=== PATIENT | male | born 1945 | race Caucasian/White ===

== ENCOUNTER 2019-09-27 10:43 | Inpatient (IN) | payer OTHER ==
[~2019-09-27] VITALS: Ht 160 cm; Wt 66.2 kg
[2019-10-03] MEDS ORDERED: LANTUS SUBCUTANEO (10:17)
[2019-10-03] MEDS ORDERED: GABAPEN PO (10:17)
[2019-10-03] MEDS ORDERED: TOPROL XL50 M1 PO (10:18)
[2019-10-03] MEDS ORDERED: ZESTRIL10 M1 PO (10:18)
[2019-10-03] MEDS ORDERED: SYNTHROID75 MCG PO (10:18)
[2019-10-03] MEDS ORDERED: GLIMEPIRIDE4 M1 PO (10:19)
[2019-10-03] MEDS ORDERED: SIMVAST PO (10:19)
[2019-10-03] MEDS ORDERED: ULTRAM50 MG PO (10:20)
[2019-10-03] MEDS ORDERED: LANOXIN125 MCG PO (10:20)
[2019-10-16] MEDS ORDERED: GABAPENTIN800 M1 PO (08:11)
[2019-10-16] MEDS ORDERED: SIMVASTATIN20 MG PO (08:11)
[2019-10-20] MEDS ORDERED: NEURONTIN300 MG PO (12:35)
[2019-10-20] MEDS ORDERED: PERCOCET 5-3251 EACH PO (12:35)
== END 2019-10-21 12:16 | disposition home or self-care (01) | DRG 331 ==
LOC: SURH 10-13 06:00 → O/R 10-13 06:00 → SURG 10-13 07:15 → SURH 10-13 12:42
PROVIDERS: ADMIT Surgery
PROC: 07TB4ZZ Resection of Mesenteric Lymphatic, Percutaneous Endoscopic Approach (ICD-10-PCS; 2019-10-13)
PROC: 0DTN4ZZ Resection of Sigmoid Colon, Percutaneous Endoscopic Approach (ICD-10-PCS; principal; 2019-10-13 07:15)
PROC: 0DJD8ZZ Inspection of Lower Intestinal Tract, Via Natural or Artificial Opening Endoscopic (ICD-10-PCS; 2019-10-16)
DX: C20 Malignant neoplasm of rectum (principal); K57.30 Diverticulosis of large intestine without perforation or abscess without bleeding; K64.1 Second degree hemorrhoids; Z85.048 Personal history of other malignant neoplasm of rectum, rectosigmoid junction, and anus; I10 Essential (primary) hypertension

== ENCOUNTER 2019-10-11 09:14 | Outpatient (CLI) | payer OTHER ==
[~2019-10-11 09:14] MED LIST: GABAPEN PO; GLIMEPIRIDE4 M1 PO; LANOXIN125 MCG PO; LANTUS SUBCUTANEO; SIMVAST PO; SYNTHROID75 MCG PO; TOPROL XL50 M1 PO; ULTRAM50 MG PO; ZESTRIL10 M1 PO
== END 2019-10-11 11:53 | disposition home or self-care (01) ==
LOC: NUCLEAR 09:14
DX: I10 Essential (primary) hypertension (principal)

== ENCOUNTER 2019-10-23 11:31 | Emergency (ER) | payer OTHER ==
[~2019-10-23] VITALS: Ht 160 cm; Wt 66.2 kg
[~2019-10-23 11:31] MED LIST changes: +GABAPENTIN800 M1 PO; +NEURONTIN300 MG PO; +PERCOCET 5-3251 EACH PO; +SIMVASTATIN20 MG PO
[2019-10-23] MEDS ORDERED: HYDRALAZINE HCL50 MG (11:50)
[2019-10-23] MEDS ORDERED: AZOR 5-20 MG T1 EACH (11:51)
== END 2019-10-23 18:15 | disposition home or self-care (01) ==
LOC: ER 11:31
DX: I95.89 Other hypotension (principal); Z93.3 Colostomy status